=== PATIENT | female | born 2000 | race African-American/Black ===

== ENCOUNTER 2021-03-03 19:05 | Emergency (ER) | payer SELFPAY ==
[2021-03-03 19:23] VITALS: BP 107/62; PULSE 72; RESP 16; TEMP 36.4; O2SAT 99
--- NOTE | 2021-03-03 19:23 | ED.URI ---
HPI - URI/Sore Throat General Chief Complaint: Ear Stated Complaint: ear/nose/throat Time Seen by Provider: 03/03/21 19:31 Source: patient and RN notes reviewed Mode of arrival: ambulatory Limitations: no limitations History of Present Illness HPI Narrative: 20-year-old female presents concern for left ear pain, left-sided sore throat. She denies rhinorrhea, nasal congestion, fever, nausea, vomiting, headache, body aches, chills, sweats, loss of sense of taste or smell. She denies any intervention MD elicited complaint: sore throat and other (Ear pain) Related Data Home Medications Medication Instructions Recorded Confirmed norelgestromin-ethin.estradiol 1 patch TOPICAL WEEKLY 03/03/21 03/03/21 [Xulanpearl] Allergies Allergy/AdvReac Type Severity Reaction Status Date / Time No Known Allergies Allergy Verified 03/03/21 19:32 Review of Systems Review of Systems: Narrative: CONSTITUTIONAL: Denies malaise, chills, sweats, or fever. EYES: Denies visual changes, redness, or discharge. ENT: Denies rhinorrhea, congestion, sinus pain. Reports left-sided otalgia and sore throat. CARDIOVASCULAR: Denies chest pain, palpitations, or edema. RESPIRATORY: Reports cough. Denies dyspnea. GASTROINTESTINAL: Denies abdominal pain, nausea, vomiting, diarrhea SKIN: Denies rash or itching. MUSCULOSKELETAL: Denies myalgia. NEUROLOGIC: Denies headache. All systems reviewed & are unremarkable except as noted in HPI and below PMFSH Comments At time of signature, agree with nursing past medical, surgical, social and family history. There is no relevant family history pertinent to the presenting complaint Exam Narrative: Exam Narrative: GENERAL: Well-appearing, well-nourished, and in no acute distress. HEAD: Normocephalic EYES: PERRLA, conjunctivae clear ENT: Nares clear, turbinates erythematous, clear discharge. Mucous membranes moist. TM pearly villalta with sharp light reflex bilaterally; no tragal tenderness. Oropharynx mildly erythematous without lesions. Tonsils not enlarged and without exudate, no drooling, no hoarseness, no trismus, uvula midline. NECK: Supple. No lymphadenopathy CHEST: Clear to auscultation, breath sounds equal. No wheezing, rhonchi, rales, or stridor. No respiratory distress, speaks in full sentences. HEART: Regular rate and rhythm. No murmur heard. SKIN: Warm, dry, no rash. NEURO: Alert and oriented x3. PSYCH: Normal mood and affect Course Course Emergency Course: Patient is aware of diagnosis, understands and agrees to treatment plan. Anticipatory guidance given. Patient agrees to follow-up as directed and is aware of reasons to seek care at the emergency department. Portions of this record may have been created with voice recognition software Vital Signs Vital signs: Vital Signs Temperature 97.6 F 03/03/21 19:23 Pulse Rate 72 03/03/21 19:23 Respiratory Rate 16 03/03/21 19:23 Blood Pressure 107/62 03/03/21 19:23 Pulse Oximetry 99 03/03/21 19:23 Temperature 97.6 F 03/03/21 19:23 Pulse Rate 72 03/03/21 19:23 Respiratory Rate 16 03/03/21 19:23 Blood Pressure 107/62 03/03/21 19:23 Pulse Oximetry 99 03/03/21 19:23 Reviewed. MDM - URI/Sore Throat MDM Narrative Medical decision making narrative: Differential diagnosis considered: Crocker virus, strep pharyngitis, allergic rhinitis, upper respiratory tract infection, sinusitis, rhinosinusitis, nasopharyngitis. viral pharyngitis, otitis media, otitis externa, pneumonia, bronchitis, viral cough syndrome, viral syndrome, and influenza. Exam findings show no acute concerns or changes; patient is non-toxic appearing and is in no distress. Patient is appropriate for outpatient treatment and follow-up. Lab Data Attestation: I reviewed the patient's lab results. Labs: Strep Screen Presumptive Negative *(Reference Range: Negative)* Critical Care Time Critical Care Time Kathrine
== END 2021-03-03 19:48 | disposition home or self-care (01) ==
PROVIDERS: Emergency Provider Nurse Practitioner
DX: H92.02 Otalgia, left ear (principal)
CPT/HCPCS: 87081; 87880; 99213; G0463

== ENCOUNTER 2024-09-20 00:31 | Day surgery (SDC) | payer MEDICAID, SELFPAY ==
[2024-09-10 08:38] VITALS: BMI 24.0
--- NOTE | 2024-09-10 08:45 | PC.NURSE ---
Report to the Outpatient Waiting Room, entrance under the green pavilion located off [facility], at time _0730_ on date _[id number]_. Planned Procedure Time: _0930_.? Time changes happen often and if your time is changed the preop area will call you the afternoon before. - You and your visitor will be asked to self-screen and do not enter if you have any COVID symptoms. Please call surgeon if you need to reschedule. - A mask is optional within the hospital at this time. Patients may have clear liquids (water, carbonated beverages, clear teas, apple juice) until 3 hours prior to surgery with a maximum of 20 ounces. - No food from midnight until time of surgery and no smoking Take only the following medications with a SIP of water on the morning of surgery: __Nausea medication if needed. DO NOT STOP ANY OF YOUR OTHER PRESCRIPTION MEDICATIONS PRIOR TO SURGERY EXCEPT THE FOLLOWING Medications to discontinue per physician ___None Please no make-up, nail tristanian, hairspray, perfume, deodorant, or body powder the day of surgery.? No jewelry (including any body piercings) or valuables the day of surgery, leave them at home.? Please take a shower or bath the night before, or the morning of, surgery with an antibacterial soap.? Wear comfortable, loose fitting clothing.? - Jewelry must be removed prior to entering the operating room.? Rings and piercings that are not removed may be cut off. - The hospital will not accept responsibility for valuables.? - Please leave all valuables, including medications, at home the day of surgery. If you are going home after surgery, a licensed residential recycle driver must drive you home.? - NO public transportation without another adult if you receive anesthesia. - We recommend that an adult stay with you for 24 hours following discharge. - We also recommend that you do not drive, make important decision, drink alcoholic beverages, or take any drugs that were not prescribed by your health care provider for at least 24 hours after your discharge time. Follow any additional instructions given to you from your surgeon. Telephone instructions given to _Tia__and asked if any additional questions and then verbalized understanding. Patient advised to call surgeon office or pre surgery nurse liaison [phone] if any additional questions.
--- NOTE | 2024-09-12 07:05 | P.HP_ITS ---
H&P: HPI History of Present Illness Date/Time: 09/12/24 07:05 Chief Complaint: Incompetent cervix Narrative: Is a 24-year-old 2 para 0101 with history of incompetent cervix. Her EDC is 02/26/2025 confirmed by early ultrasound. She presents at 16 weeks gestation for Greene cerclage. Patient was seen early late care secondary to insurance problems. She underwent ultrasound which showed a cervix jodie suring2.5cm. Risks and benefits of the cerclage were noted including premature rupture membranes and . She had all questions answered and asked to proceed she does have a history of a rescue cerclage with her previous [facility] Social History Social History Smoking status: Never smoker Living arrangements: with family Spiritual care concerns: No Meds Home Medications and Allergies Home Medications Medication Instructions Recorded Confirmed Type metoclopramide HCl 10 mg tablet 10 mg PO Q6H PRN Nausea 09/10/24 09/10/24 History ondansetron HCl 4 mg tablet 4 mg PO Q4H PRN Nausea 09/10/24 09/10/24 History Allergies Allergy/AdvReac Type Severity Reaction Status Date / Time No Known Allergies Allergy Verified 03/03/21 19:32 Exam Const: General: cooperative, healthy appearing, comfortable and average body habitus Orientation/consciousness: oriented to person, oriented to place and oriented to time Resp: Effort & Inspection: normal respiratory effort Cardio: Rate: regular rate Rhythm: regular rhythm Heart sounds: S1 normal heart sound present and S2 normal heart sound present GI: Inspection: normal to inspection : External Female Exam: normal external appearance Speculum Exam - Vagina: normal appearance of the vagina Speculum Exam - Cervix: normal appearance of the cervix Bimanual exam- vagina & uterus: enlarged Assessment and Plan Assessment and plan (1) Incompetent cervix: Code(s): N88.3 - Incompetence of cervix uteri Status: Acute (2) Second trimester : Code(s): Z34.92 - Encounter for supervision of normal , unspecified, second trimester Status: Acute Assessment and Plan: Proceed with Greene cerclage
--- NOTE | 2024-09-14 06:47 | WPDHPUPDATE1 ---
History and Physical Update Update Date/Time: 09/14/24 06:47 History and Physical has been reviewed, including an updated exam of the patient. There are NO changes in the patient's condition. Risks, benefits, and alternatives have been discussed and questions answered. Patient agrees to proceed with procedure.
--- NOTE | 2024-09-14 09:27 | WPDHPUPDATE1 ---
History and Physical Update Update Date/Time: 09/14/24 09:27 History and Physical has been reviewed, including an updated exam of the patient. There are NO changes in the patient's condition. Risks, benefits, and alternatives have been discussed and questions answered. Patient agrees to proceed with procedure. the patient was a no-show today for surgery. With made multiple attempts to treat this patient and it was stressed to her how important with the now cervical funneling and the history of incompetent cervix that this is necessary to preserve the . The office will call and attempt to reschedule as soon as possible
[2024-09-18 15:59] VITALS: BMI 23.8
--- NOTE | 2024-09-18 16:08 | SUR.PREOP ---
Report to the Outpatient Waiting Room, entrance under the green pavilion located off [facility], at time 12:00p.m. on date 09/20/2024. Planned Procedure Time: 2:00p.m.? Time changes happen often and if your time is changed the preop area will call you the afternoon before. - You and your visitor will be asked to self-screen and do not enter if you have any COVID symptoms. Please call surgeon if you need to reschedule. - A mask is optional within the hospital at this time. Patients may have clear liquids (water, carbonated beverages, clear teas, apple juice) until 3 hours prior to surgery with a maximum of 20 ounces. - No food from midnight until time of surgery and no smoking - Infants may have breast milk until 4 hours before surgery, infant formula 6 hours prior to surgery. - Children will be allowed to drink immediately following surgery.? If applicable, please bring a bottle or sippy cup to assist with drinking. Juice, water, soda, and popsicles are readily available.? For infants on formula, please bring formula the day of surgery.? Pacifiers are allowed. Take only the following medications with a SIP of water on the morning of surgery: Reglan DO NOT STOP ANY OF YOUR OTHER PRESCRIPTION MEDICATIONS PRIOR TO SURGERY EXCEPT THE FOLLOWING Medications to discontinue per physician N/A Date to take last dose N/A Please no make-up, nail tongan, hairspray, perfume, deodorant, or body powder the day of surgery.? No jewelry (including any body piercings) or valuables the day of surgery, leave them at home.? Please take a shower or bath the night before, or the morning of, surgery with an antibacterial soap.? Wear comfortable, loose fitting clothing.? Children are encouraged to wear pajamas. - Jewelry must be removed prior to entering the operating room.? Rings and piercings that are not removed may be cut off. - The hospital will not accept responsibility for valuables.? - Please leave all valuables, including medications, at home the day of surgery. If you are going home after surgery, a licensed public transit bus driver must drive you home.? - NO public transportation without another adult if you receive anesthesia. - We recommend that an adult stay with you for 24 hours following discharge. - We also recommend that you do not drive, make important decision, drink alcoholic beverages, or take any drugs that were not prescribed by your health care provider for at least 24 hours after your discharge time. For Pediatric surgeries, we recommend two adults accompany the child home. Follow any additional instructions given to you from your surgeon. Telephone instructions given to Laurie Little and asked if any additional questions and then verbalized understanding. Patient advised to call surgeon office or pre surgery nurse liaison [phone] if any additional questions.
[2024-09-20] VITALS (9 sets, daily range): BP systolic 103–111; BP diastolic 54–68; PULSE 78–93; RESP 14–20; TEMP 36.6–36.7; O2SAT 100
--- NOTE | ~2024-09-20 | US_ITS ---
EXAMINATION: US OB limited DATE: 09/20/2024 16:13 INDICATION: Postop cerclage. TECHNIQUE: Real-time ultrasound of the pelvis was performed. COMPARISON: Ultrasound 12:32 PM FINDINGS: There is a single fetus in variable presentation. The placenta is posterior. heart rate is 144 beats per minute (bpm). The amniotic fluid volume is subjectively normal. The deepest vertical pocke t is 6.1 cm. The cervical length is 3.0 cm on transabdominal images, which is normal. IMPRESSION: 1. Single living fetus in variable presentation. Reviewed, dictated and finalized at location A. 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
--- NOTE | ~2024-09-20 | US_ITS ---
EXAMINATION: US OB limited DATE: 09/20/2024 12:52 INDICATION: viability. TECHNIQUE: Real-time ultrasound of the pelvis was performed. COMPARISON: None. FINDINGS: There is a single fetus in vertex presentation. The placenta is posterior. heart rate is 149 b eats per minute (bpm). The amniotic fluid volume is subjectively normal. The deepest vertical pocket is 4.7 cm. The cervical length is 2.5 cm on transabdominal images, which is normal. IMPRESSION: 1. Single living fetus in vertex presentation. 2. Normal cervical length. Reviewed, dictated and finalized at location A. [facility]
--- NOTE | 2024-09-20 10:17 | WPDHPUPDATE1 ---
History and Physical Update Update Date/Time: 09/20/24 10:17 History and Physical has been reviewed, including an updated exam of the patient. There are NO changes in the patient's condition. Risks, benefits, and alternatives have been discussed and questions answered. Patient agrees to proceed with procedure.
[2024-09-20] MEDS: LACTATED RINGERS 1,000 ML 30 ML IV CONT (12:15)
--- NOTE | 2024-09-20 13:59 | P.PNAN_ITS ---
Anes - Initial Pre Proc Eval Procedure: Operation Date: 09/20/24 14:00 Proposed Procedures p Alexis Cervical Cerclage - Anderson Mckeon MD Date/Time: 09/20/24 13:59 Surgeon: Anderson Mckeon MD Pre Op Diagnosis: incompetent cervix Patient Data Age: 24 Gender: F Height: 1.52 m Weight: 55.5 kg Last Vital Signs Temp 36.7 C 09/20/24 12:15 Pulse 82 09/20/24 12:15 BP 103/58 L 09/20/24 12:15 Pulse Ox 100 09/20/24 12:15 O2 Del Method Room Air 09/20/24 12:15 Allergies Allergy/AdvReac Type Severity Reaction Status Date / Time No Known Allergies Allergy Verified 09/20/24 12:53 Home Medications Medication Instructions Recorded Confirmed Type metoclopramide HCl 10 mg tablet 10 mg PO Q6H PRN Nausea 09/10/24 09/18/24 History ondansetron HCl 4 mg tablet 4 mg PO Q4H PRN Nausea 09/10/24 09/18/24 History hydrocodone 5 mg-acetaminophen 325 1 tablet PO Q4H PRN pain #10 tabs 09/20/24 Rx mg tablet Patient hx anesthesia problems: none Family hx anesthesia problems: none Results Review: All pre-operative results and documents have been reviewed as part of the pre- operative evaluation. COUNT INCLUDES THE [facility] Social History Social History Smoking status: Never smoker Living arrangements: with family Spiritual care concerns: No Anes - Eval Final PreProcedure Day of Procedure 09/20/24 13:59 Patient weight: normal () Heart: regular rate and rhythm Lungs: clear to auscultation and normal air movement Airway: Mallampati scale class 1 Neurological: alert and oriented Last oral intake: >/= 8 hours ASA classification: II Emergent: no Anesthetic plan: proceed Anesthesia type and monitoring: regional spinal and standard monitoring Results Review: All pre-operative results and documents have been reviewed as part of the pre- operative evaluation. Informed Consent: The patient's anesthetic plan and its attendant risks and benefits were d iscussed with the patient/family/POA. Questions were solicited and answers provided to the satisfaction of the patient/family/POA. GERD History of Present Illness GI Data: No Data to Display
[2024-09-20 14:05] LABS: Hematocrit 34.3 % (37.0-47.0); Hemoglobin 11.4 g/dL (12.0-15.0)
--- NOTE | 2024-09-20 14:49 | W.PM.PROC2 ---
Procedure Note - Detailed Date of Procedure 09/20/24 Pre-op Diagnosis incompetent cervix Post-op Diagnosis Same Procedure Performed Greene cerclage Surgeon Anderson Mckeon MD Anesthesia Spinal Indications 24-year-old female at 16 weeks gestation for cerclage with a history of incompetent cervix this was offered to her at about 11 12 weeks however patient took quite some to show. Cervix was mildly short but appeared okay at this point Findings shortened cervix Description of Procedure patient was prepped draped were placed in the dorsal lithotomy position. Under excellent spinal anesthetic using the large needle Mersilene starting at 2:00 a.m. this went to 10:00 a.m. 10:00 a.m. 2 8:00 a.m. 8:00 a.m. to 6 4:00 a.m. and 4:00 a.m. back to 2:00 a.m. this was tied the right upper quadrant at about 2:00 a.m. it palpated has a nice closure she tolerated the procedure well blood loss was 5cc there were no complications all sponge needle instrument counts were correct Estimated Blood Loss 5 Drains No Packing No Pathology None sent Complications No immediate complications Condition Stable Disposition PACU
--- NOTE | 2024-09-20 15:03 | SUR.PHASEI ---
5739 PT HAS SENSATION TO TOES, UNABLE TO MOVE LEGS AT THIS TIME
--- NOTE | 2024-09-20 15:19 | SUR.PHASEI ---
1505 PT HAS SENSATION INTACT TO FEET/TOES, ABLE TO LIFT KNEES SLIGHTLY.
--- NOTE | 2024-09-20 15:21 | SUR.PHASEI ---
PT ABLE TO WIGGLE FEET AND TOES, ABLE TO LIFT KNEES OFF OF BED, STATES CANNOT HOLD HER LEGS UP.
[2024-09-20] MEDS: oxyCODONE HCL (*CRX) 5 MG TAB IR PO (16:52)
[2024-09-20] MEDS: ONDANSETRON HCL ODT 4 MG TABLET PO (17:26)
--- NOTE | 2024-09-20 17:37 | SUR.PHASEI ---
1450 PT ABLE TO LIFT KNEES AND HOLD THEM UP, SENSATION INTACT TO FEET/TOES
== END 2024-09-20 17:40 | disposition home or self-care (01) ==
PROVIDERS: Visit Provider Obstetrics & Gynecology
PROC: 0UVC7ZZ Restriction of Cervix, Via Natural or Artificial Opening (ICD-10-PCS; CPT 57700; principal; 2024-09-20 14:00)
DX: N88.3 Incompetence of cervix uteri (principal); Z79.891 Long term (current) use of opiate analgesic
CPT/HCPCS: 59320; 36415; 76815; 85014; 85018; A9270; J7120

== ENCOUNTER 2024-09-30 14:22 | Emergency (ER) | payer MEDICAID, SELFPAY ==
[2024-09-30 14:31] VITALS: BP 114/60; PULSE 111; RESP 16; TEMP 36.2; O2SAT 100
[2024-09-30 17:39] VITALS: BP 111/65; PULSE 64; RESP 16; TEMP 36.6; O2SAT 99
--- NOTE | 2024-09-30 18:10 | ED_ITS ---
HPI - Female Genitourinary General Chief complaint: Vaginal Bleeding Stated complaint: 16 wks , vag bld Time Seen by Provider: 09/30/24 18:05 Source: patient Mode of arrival: ambulatory Limitations: no limitations History of Present Illness HPI Narrative: This is a 24-year-old female who is approximately 17 weeks , 10 days postop from cervical cerclage presents to the ED for chief complaint of vaginal bleeding that started this morning. Reports she has had discharge that is a dark red blood with a lot of pressure in the lower abdomen. states the pressure was present at the onset of bleeding but has subsided a little bit. She also states that the bleeding has really slow down and is now just a spotting brown discharge. denies fevers, chills, nausea, vomiting, diarrhea, cough, back pain lightheadedness or syncope. ROMAN is Dr. Charlene Mckeon Related Data Home Medications Medication Instructions Recorded Confirmed metoclopramide HCl 10 mg tablet 10 mg PO Q6H PRN Nausea 09/10/24 09/18/24 ondansetron HCl 4 mg tablet 4 mg PO Q4H PRN Nausea 09/10/24 09/18/24 Allergies Allergy/AdvReac Type Severity Reaction Status Date / Time No Known Allergies Allergy Verified 09/20/24 12:53 Review of Systems Review of Systems: All systems as dictated in [facility] Social History Social History Smoking status: Never smoker Living arrangements: with family Spiritual care concerns: No Exam 2 Narrative: GENERAL: Well-appearing, well-nourished, and in no acute distress. HEAD: Normocephalic, atraumatic. EYES: PERRLA and EOMI. ENT: Nares clear, no rhinorrhea or epistaxis. Mucous membranes moist. Oropharynx without tonsillar hypertrophy exudate or other lesions. NECK: Supple. No adenopathy or masses. CHEST: No respiratory distress. Clear to auscultation. No wheezes rales or rhonchi HEART: Regular rate and rhythm. No murmur heard. Normal peripheral pulses. ABDOMEN: Gravid abdomen. Soft, nontender, nondistended, normal active bowel sounds. MSK: Normal range of motion. No edema. SKIN: Warm, dry, no rash. NEURO: Alert and oriented x4. No focal deficits. PSYCH: Normal mood and affect. bedside heart tones are 153 Course Vital Signs Vital signs: Vital Signs Temperature 97.2 F L 09/30/24 14:31 Pulse Rate 111 H 09/30/24 14:31 Respiratory Rate 16 09/30/24 14:31 Blood Pressure 114/60 09/30/24 14:31 Pulse Oximetry 100 09/30/24 14:31 Oxygen Delivery Room Air 09/30/24 14:31 Temperature 97.8 F 09/30/24 17:39 Pulse Rate 83 09/30/24 19:58 Respiratory Rate 16 09/30/24 19:58 Blood Pressure 102/64 09/30/24 19:58 Pulse Oximetry 100 09/30/24 19:58 Oxygen Delivery Room Air 09/30/24 14:31 MDM - Female Genitourinary MDM Narrative Medical decision making narrative: this is a 24-year-old female who presents to the ED for chief complaint of vaginal bleeding and around 17 weeks . Recent cervical cerclage. Vit als are normal. Exam is benign overall. No abdominal tenderness. She has a gravid abdomen with heart tones 153. Pelvic exam reveals no vaginal bleeding. The cervical os is closed the vagin al cough looks to be intact. Lab work is unremarkable overall. He will be Spoke with OBGYN Dr Samuels who is in agreement with the above workup and plan for discharge home as she is not having any vaginal bleeding currently. Recommends that she call the office tomorrow for follow-up promptly. Patient will be discharged in stable condition. Supportive measures discussed and return precautions given. Patient is understanding and agreeable with plan for discharge with PCP/OB follow-up. Lab Data 09/30/24 19:30 09/30/24 19:30 Labs: Lab Results 09/30/24 Range/Units 19:30 WBC 10.2 H (4.5-10.0) K/mm3 RBC 3.93 L (4.2-5.4) M/mm3 Hgb 11.9 L (12.0-15.0) g/dL Hct 35.8 L (37.0-47.0) % MCV 91.1 (80-100) fl MCH 30.3 (26-34) pg MCHC 33.2 (32-36) g/dl RDW 12.4 (11.5-14.5) % Plt Count 341 (150-375) k/mm3 MPV 9.2 (7.4-10.4) fl Immature Gran % (Auto) 0.3 (0-0.5) % Neut % (Auto) 71.5 (45.5-73.1) % Lymph % (Auto) 19.4 (18.3-44.2) % [place] % (Auto) 8.0 (2.6-8.5) % Eos % (Auto) 0.6 (0-4.4) % Baso % (Auto) 0.2 (0.2-1.2) % Lymph # (Auto) 1.97 (0.9-3.2) K/mm3 [place] # (Auto) 0.8 H (0.1-0.6) K/mm3 Eos # (Auto) 0.1 (0-0.3) K/mm3 Baso # (Auto) 0.0 (0.0-0.1) K/mm3 Abs Immat Gran (auto) 0.03 (0.00-0.031) K/mm3 Absolute Neuts (auto) 7.3 H (1.3-6.7) K/mm3 Absolute Nucleated RBC 0.000 (0.0-0.012) K/mm3 Nucleated RBC % 0.0 (0.0-0.2) % PT 13.2 (11.1-14.7) Seconds INR 1.0 APTT 27.1 (22.3-36.8) Seconds Sodium 133 L (137-145) mmol/L Potassium 4.0 (3.4-5.0) mmol/L Chloride 104 (98-107) mmol/L Carbon Dioxide 23 (22-30) mmol/L Anion Gap 6 (4-12) mmol/L BUN 8 (7-17) mg/dL Creatinine 0.40 L (0.7-1.0) mg/dL Estim Creat Clear Calc 124 ml/min Estimated GFR > 60 (59 - ) Glucose 85 (65-110) mg/dL Calcium 9.1 (8.4-10.2) mg/dL Total Bilirubin 0.3 (0.2-1.3) mg/dL AST 21 (14-36) U/L ALT 16 (6-35) U/L Alkaline Phosphatase 64 (38-126) U/L Total Protein 8.0 (6.3-8.2) g/dL Albumin 4.2 (3.5-5.1) g/dL Beta HCG, Quant 9415.40 mIU/ML Blood Type A Positive Antibody Screen Negative Screen TNP Baby's Blood Type TNP Baby's ANOOP TNP Doses of RhIg Required 0 Discharge Plan Discharge Clinical Impression: Vaginal bleeding Patient Disposition: Home, Self-Care Condition: Stable Instructions: Antibiotic Form Additional Instructions: Exam today is reassuring overall. Please follow-up with OB tomorrow. If you have any new or worsening symptoms please return to the ER for further evaluation. Prescriptions: No Action ondansetron HCl 4 mg tablet 4 mg PO Q4H PRN (Reason: Nausea) metoclopramide HCl 10 mg tablet 10 mg PO Q6H PRN (Reason: Nausea) hydrocodone-acetaminophen 5-325 mg tablet 1 tablet PO Q4H PRN (Reason: pain) Qty: 10 0RF Follow-up/Referrals: Anderson Rojas MD [Primary Care Provider] - Time of Disposition: 20:52
[2024-09-30 19:41] LABS: Basophils Percent Auto 0.2 % (0.2-1.2); Eosinophils Absolute Auto 0.1 K/mm3 (0-0.3); Eosinophils Percent Auto 0.6 % (0-4.4); Hematocrit 35.8 % (37.0-47.0); Hemoglobin 11.9 g/dL (12.0-15.0); Immature Granulocyte Absolute 0.03 K/mm3 (0.00-0.031); Immature Granulocyte Percent A 0.3 % (0-0.5); Lymphocytes Absolute Auto 1.97 K/mm3 (0.9-3.2); Lymphocytes Percent Auto 19.4 % (18.3-44.2); Mean Corpuscular HGB Conc 33.2 g/dl (32-36); Mean Corpuscular Hemoglobin 30.3 pg (26-34); Mean Corpuscular Volume 91.1 fl (80-100); Mean Platelet Volume 9.2 fl (7.4-10.4); Monocytes Absolute Auto 0.8 K/mm3 (0.1-0.6); Neutrophils Absolute Auto 7.3 K/mm3 (1.3-6.7); Neutrophils Percent Auto 71.5 % (45.5-73.1); Platelet Count Result 341 k/mm3 (150-375); Red Blood Count 3.93 M/mm3 (4.2-5.4); Red Cell Distribution Width 12.4 % (11.5-14.5); White Blood Count 10.2 K/mm3 (4.5-10.0)
[2024-09-30 19:52] LABS: Alanine Aminotransferase 16 U/L (6-35); Albumin Level 4.2 g/dL (3.5-5.1); Alkaline Phosphatase 64 U/L (38-126); Anion Gap 6 mmol/L (4-12); Aspartate Amino Transferase 21 U/L (14-36); Bilirubin,Total 0.3 mg/dL (0.2-1.3); Blood Urea Nitrogen 8 mg/dL (7-17); Calcium 9.1 mg/dL (8.4-10.2); Carbon Dioxide 23 mmol/L (22-30); Chloride 104 mmol/L (98-107); Estimated CRCL calculation 124 ml/min; Estimated Glomerular Filt Rate > 60; Glucose 85 mg/dL (65-110); Prothrombin Time 13.2 Seconds (11.1-14.7); Sodium 133 mmol/L (137-145)
[2024-09-30 19:53] LABS: Partial Thromboplastin Time 27.1 Seconds (22.3-36.8)
[2024-09-30 19:58] VITALS: BP 102/64; PULSE 83; RESP 16; O2SAT 100
== END 2024-09-30 21:12 | disposition home or self-care (01) ==
PROVIDERS: Emergency Provider Physician Assistant; PCP Obstetrics & Gynecology
DX: O46.92 Antepartum hemorrhage, unspecified, second trimester (principal); Z3A.17 17 weeks gestation of pregnancy
CPT/HCPCS: 36415; 80053; 84702; 85025; 85461; 85610; 85730; 86850; 86900; 86901; 99284

== ENCOUNTER 2025-09-06 09:55 | Emergency (ER) | payer OTHER, SELFPAY ==
--- NOTE | 2025-09-06 10:01 | ED.URI ---
HPI - URI/Sore Throat General Chief Complaint: Upper Respiratory Infection Stated Complaint: right ear pain/sore throat Source: patient Mode of arrival: ambulatory Limitations: no limitations History of Present Illness HPI Narrative: АЛЕКСАНДР is a 25-year-old female patient presenting to the clinic today with complaints of right ear pain and sore throat x3 days. She reports no fevers, chills, body aches. Denies headache, nasal drainage, or cough. Has been taking a tsp of honey for the sore throat. Denies any shortness of breath or chest pain. No one else at home is sick. Related Data Allergies Allergy/AdvReac Type Severity Reaction Status Date / Time No Known Allergies Allergy Verified 09/06/25 10:27 Review of Systems Review of Systems: Pertinent positives per HPI. Patient denies any fever, chills, rash, headache, visual changes, dizziness, cough, shortness of breath, chest pain, palpitations, nausea, vomiting, diarrhea, constipation, abdominal pain, or any urinary issues. PMFSH Social History Social History Smoking status: Never smoker Living arrangements: with family Spiritual care concerns: No Comments At the time of my signature, I reviewed and agree with the nursing past medical, surgical, social, and family history. There is no relevant family history pertinent to the patient complaint. Exam Narrative: General: Well-developed, well nourished, in no apparent distress Head: Normocephalic, atraumatic Eyes: Pupils equally round and reactive to light bilaterally, EOM intact, sclera and conjunctive clear, no discharge, lids normal Ears: TMs intact and congested, ear canals clear, no drainage, grossly hearing normal. Nose: Nares patent, no discharge, no inflammation, no sinus tenderness. Mouth: Oral pharynx red with mild tonsillar enlargement without lesions or masses, good dentition, MMM. Neck: Supple, trachea midline, no enlargement of anterior or posterior cervical nodes, no thyroid masses or goiter palpable. Cardio: Regular rate and rhythm, s1 and s2 normal, no murmur appreciated. Resp: Clear to auscultation bilaterally, no rhonchi, rales, wheezing or rubs Course Course Emergency Course: Portions of this record may have been created with voice recognition software. Level of Care: Express Care Visit Vital Signs Vital signs: Vital signs reviewed MDM - URI/Sore Throat MDM Narrative Medical decision making narrative: At the time of visit patient is resting comfortably on the exam table. Patient appears to be nontoxic. Complaints of right ear pain and sore throat x3 days. She reports no fevers, chills, body aches. Denies headache, nasal drainage, or cough. Has been taking a tsp of honey for the sore throat. Denies any shortness of breath or chest pain. No one else at home is sick. On exam patient has bilateral TM congestion, no nasal drainage, nares are patent, oropharynx red with mild tonsillar enlargement, no exudate, no cervical lymphadenopathy, lung sounds are clear, heart rates regular rate rhythm. Strep test was ordered. Labs: Strep test was performed and positive in the clinic today. Plan: I suspect patient has strep pharyngitis. Prescription for amoxicillin was sent to the pharmacy. Work note was given. Supportive measures were discussed with the patient and they voiced understanding discharge instructions and agrees to treatment plan. Return precautions reviewed Differential Diagnosis Differential diagnosis: Likely upper respiratory infection, otitis media, sinusitis, viral infection, bronchitis, influenza, pharyngitis and other (COVID) Discharge Plan Discharge Clinical Impression: Strep pharyngitis Patient Disposition: Home Condition: Stable Instructions: Antibiotic Form, Strep Throat (ED) Additional Instructions: Strep test was positive in the clinic today. Take prescription medications only as prescribed-amoxicillin Increase fluids and stay well hydrated May take Tylenol or motrin as directed on bottle for pain/fever May use Flonase 1 spray in each nare daily May take OTC antihistamines such as Zyrtec or Claritin daily as directed on bottle May apply Vicks vapor rub to chest to open sinuses Sinus rinses for congestion Cepacol spray, cough drops, throat lozenges, warm tea with honey/lemon, gargle salt water to soothe throat BRAT diet for diarrhea Clear liquids x 24 hours then advance as tolerated for nausea/vomiting Go to the ED if you develop a worsening in your condition- high fever not controlled by Tylenol or Motrin, dehydration, weakness, lethargy, shortness of breath, or chest pain. Follow up with your PCP in 3-5 days if symptoms persist. Patient Language: E[place] Prescriptions: New amoxicillin 875 mg tablet 875 mg PO Q12H 10 Days Qty: 20 0RF Follow-up/Referrals: Jeremy,NICHELLE Dailey [Primary Care Provider, Unknown] Stand Alone Forms: Work/School Release IP Time of Disposition: 10:34 Quality NIHSS Nursing Documentation ED NIHSS nursing documentation: reviewed/agree
[2025-09-06 10:12] VITALS: BP 105/52; PULSE 82; RESP 16; TEMP 37.1; O2SAT 98
[2025-09-06 10:30] LABS: EDSTREPNEGPOS1 Positive (Negative)
== END 2025-09-06 10:56 | disposition home or self-care (01) ==
PROVIDERS: Emergency Provider Nurse Practitioner Family; PCP Physician Assistant
DX: J02.0 Streptococcal pharyngitis (principal)
CPT/HCPCS: 87880; 99213; G0463

== ENCOUNTER 2025-11-09 08:42 | Emergency (ER) | payer OTHER, SELFPAY ==
--- NOTE | 2025-11-09 08:46 | ED_ITS ---
HPI - URI/Sore Throat General Chief Complaint: Upper Respiratory Infection Stated Complaint: cough Time Seen by Provider: 11/09/25 08:44 Source: patient Mode of arrival: ambulatory Limitations: no limitations History of Present Illness HPI Narrative: Keshia is a 25-year-old female patient presenting to the clinic today with complaints of a productive cough with yellow phlegm, nasal congestion and sinus pressure for over 1 week. She reports she has also been blowing out yellow nasal drainage. Has pressure over the maxillary and frontal sinuses. Denies any fevers, chills, body aches. Denies any chest pain or shortness of breath. Has been taking Advil cold and Sinus. Related Data Allergies Allergy/AdvReac Type Severity Reaction Status Date / Time No Known Allergies Allergy Verified 11/09/25 08:51 Review of Systems Review of Systems: Pertinent positives per HPI. Patient denies any fever, chills, rash, visual changes, dizziness, shortness of breath, chest pain, palpitations, nausea, vomiting, diarrhea, constipation, abdominal pain, or any urinary issues. PMFSH Social History Social History Smoking status: Never smoker Living arrangements: with family Spiritual care concerns: No Comments At the time of my signature, I reviewed and agree with the nursing past medical, surgical, social, and family history. There is no relevant family history pertinent to the patient complaint. Exam Narrative: General: Well-developed, well nourished, in no apparent distress Head: Normocephalic, atraumatic Eyes: Pupils equally round and reactive to light bilaterally, EOM intact, sclera and conjunctive clear, no discharge, lids normal Ears: TMs intact and congested, ear canals clear, no drainage, grossly hearing normal. Nose: Nares patent, yellow nasal discharge, moderate inflammation, maxillary and frontal sinus tenderness. Mouth: Oral pharynx red without lesions or masses, good dentition, MMM. Postnasal drip Neck: Supple, trachea midline, no enlargement of anterior or posterior cervical nodes, no thyroid masses or goiter palpable. Cardio: Regular rate and rhythm, s1 and s2 normal, no murmur appreciated. Resp: Clear to auscultation bilaterally, no rhonchi, rales, wheezing or rubs Course Course Level of Care: Express Care Visit Vital Signs Vital signs: Vital Signs Temperature 36.2 C L 11/09/25 08:53 Pulse Rate 85 11/09/25 08:53 Respiratory Rate 18 11/09/25 08:53 Blood Pressure 106/59 L 11/09/25 08:53 Pulse Oximetry 99 11/09/25 08:53 Oxygen Delivery Room Air 11/09/25 08:53 Temperature 36.2 C L 11/09/25 08:53 Pulse Rate 85 11/09/25 08:53 Respiratory Rate 18 11/09/25 08:53 Blood Pressure 106/59 L 11/09/25 08:53 Pulse Oximetry 99 11/09/25 08:53 Oxygen Delivery Room Air 11/09/25 08:53 MDM MDM Narrative Medical decision making narrative: At the time of visit patient is resting comfortably on the exam table. Patient appears to be nontoxic. Complaints of a productive cough with yellow phlegm, nasal congestion and sinus pressure for over 1 week. She reports she has also been blowing out yellow nasal drainage. Has pressure over the maxillary and frontal sinuses. Denies any fevers, chills, body aches. Denies any chest pain or shortness of breath. Has been taking Advil cold and Sinus.. On exam patient has bilateral TMs intact and congested, yellow nasal drainage, moderate anterior turbinate inflammation, tenderness to palpation over the maxillary and frontal sinuses, oral pharynx with postnasal drip, no cervical lymphadenopathy, lung sounds are clear, heart rates regular rate and rhythm. Plan: I suspect patient has acute bacterial rhinosinusitis. Prescription for Augmentin was sent to the pharmacy. Supportive measures were discussed with the patient and they voiced understanding discharge instructions and agrees to treatment plan. Return precautions reviewed Differential Diagnosis Differential Diagnosis: Differential diagnostic considerations for upper respiratory infection include upper respiratory infection, croup, otitis media, sinusitis, viral infection, bronchitis, influenza, pharyngitis, strep, uvulitis. Discharge Plan Discharge Clinical Impression: Acute bacterial rhinosinusitis Patient Disposition: Home Condition: Stable Instructions: Antibiotic Form, Rhinosinusitis (ED) Additional Instructions: Take prescription medications only as prescribed-Augmentin Increase fluids and stay well hydrated May take Tylenol or motrin as directed on bottle for pain/fever May use Flonase 1 spray in each nare daily May take OTC antihistamines such as Zyrtec or Claritin daily as directed on bottle May apply Vicks vapor rub to chest to open sinuses Sinus rinses for congestion Cepacol spray, cough drops, throat lozenges, warm tea with honey/lemon, gargle salt water to soothe throat BRAT diet for diarrhea Clear liquids x 24 hours then advance as tolerated for nausea/vomiting Go to the ED if you develop a worsening in your condition- high fever not controlled by Tylenol or Motrin, dehydration, weakness, lethargy, shortness of breath, or chest pain. Follow up with your PCP in 3-5 days if symptoms persist. Patient Language: Portuguese Prescriptions: New amoxicillin-pot clavulanate 875-125 mg tablet 1 tablet PO Q12H 10 Days Qty: 20 0RF Follow-up/Referrals: Jeremy,NICHELLE Dailey [Primary Care Provider, Unknown] Time of Disposition: 09:09 Quality NIHSS Nursing Documentation ED NIHSS nursing documentation: reviewed/agree
[2025-11-09 08:53] VITALS: BP 106/59; PULSE 85; RESP 18; TEMP 36.2; O2SAT 99
== END 2025-11-09 09:16 | disposition home or self-care (01) ==
PROVIDERS: Emergency Provider Nurse Practitioner Family; PCP Physician Assistant
DX: J01.90 Acute sinusitis, unspecified (principal)
CPT/HCPCS: 99213; G0463